=== PATIENT | female | born 1980 | race Caucasian/White ===

== ENCOUNTER 2016-08-23 22:56 | Emergency (ER) | payer OTHER ==
[~2016-08-23] VITALS: Ht 160 cm; Wt 109.9 kg
[2016-08-23 22:57] VITALS: BP 141/83
[2016-08-23] MEDS ORDERED: LORA-445 PO (23:34)
[2016-08-23] MEDS ORDERED: SERT50TA PO (23:34)
[2016-08-23 23:45] LABS: HCG UR OBC PASS
[2016-08-23 23:47] LABS: HEMOGLOBIN 13.6 g/dL (11.7-16.4)
[2016-08-23 23:56] LABS: ASPARTATE AMINO TRANSFERASE 17 U/L (15-37); BLOOD UREA NITROGEN 13 mg/dL (7-18)
[2016-08-24 00:04] LABS: PATH.CAST-FLAG NOT PRESENT; SPERM-FLAG NOT PRESENT; SRC-FLAG NOT PRESENT; XTAL-FLAG NOT PRESENT; YLC-FLAG NOT PRESENT
== END 2016-08-24 01:35 | disposition home or self-care (01) ==
LOC: ED 23:59
DX: K80.20 Calculus of gallbladder without cholecystitis without obstruction (principal)
CPT/HCPCS: 36415; 76700; 80053; 81001; 81025; 83690; 85025; 87086; 93005